=== PATIENT | female | born 1980 | race Hispanic/Latino ===

== ENCOUNTER 2019-04-18 14:07 | Emergency (ER) | payer SELFPAY ==
[2019-04-18] MEDS ORDERED: KETOROLAC TROMETHAMINE 60 MG/2 ML VIAL ONE (14:35)
[2019-04-18] MEDS ORDERED: DEXAMETHASONE SOD PHOSPHATE 10MG/ML 1ML VIAL ONE (14:35)
[2019-04-18] MEDS ORDERED: LIDOCAINE 5% TOPICAL PATCH TP ONE (14:35)
[2019-04-18 14:51] LABS: APPEARANCE,URINE Clear (CLEAR); BILIRUBIN,URINE Negative (NEGATIVE); COLOR,URINE Yellow (YELLOW); GLUCOSE, URINE (UA) Negative (NEGATIVE); KETONES,URINE Negative (NEGATIVE); LEUKOCYTE ESTERASE ,URINE Small (NEGATIVE); NITRATE,URINE Negative (NEGATIVE); OCCULT BLOOD,URINE Negative (NEGATIVE); PROTEIN,URINE Negative (NEGATIVE); UROBILINOGEN,URINE 0.2 mg/dL (0.2-1.0)
[2019-04-18 14:55] LABS: HCG,QUAL RESULT NEGATIVE (NEGATIVE)
[2019-04-18 15:03] LABS: BACTERIA,URINE Few /HPF (None Seen); MUCUS,URINE Few LPF (None Seen); RBC,URINE 0-1 /HPF (0-1)
== END 2019-04-18 15:39 | disposition home or self-care (01) ==
LOC: EDH 14:07
DX: S33.5XXA Sprain of ligaments of lumbar spine, initial encounter (principal); X58.XXXA Exposure to other specified factors, initial encounter; Y93.89 Activity, other specified; Y92.89 Other specified places as the place of occurrence of the external cause; Y99.8 Other external cause status
CPT/HCPCS: 81001; 81025; 87088; 96372 ×2; 99284; J1100; J1885

== ENCOUNTER 2019-05-23 15:26 | Emergency (ER) | payer SELFPAY | END 2019-05-23 16:09 | disposition home or self-care (01) | LOC: EDH 15:26 | DX: S39.012A Strain of muscle, fascia and tendon of lower back, initial encounter (principal); Z90.49 Acquired absence of other specified parts of digestive tract; X58.XXXA Exposure to other specified factors, initial encounter; Y93.89 Activity, other specified; Y92.89 Other specified places as the place of occurrence of the external cause; Y99.8 Other external cause status | CPT/HCPCS: 99281 ==

== ENCOUNTER 2020-11-20 22:10 | Emergency (ER) | payer OTHER ==
[2020-11-21] MEDS ORDERED: HALOPERIDOL LACTATE 5 MG/ML VIAL ONE (01:23)
[2020-11-21] MEDS ORDERED: DIPHENHYDRAMINE HCL 25 MG CAPSULE ONE (01:24)
== END 2020-11-21 03:25 | disposition home or self-care (01) ==
LOC: EDH 22:10
DX: R51.9 Headache, unspecified (principal); Z90.49 Acquired absence of other specified parts of digestive tract
CPT/HCPCS: 70450; 96372; 99284; J1630; Q0163

== ENCOUNTER 2025-07-17 08:22 | Day surgery (SDC) | payer BC ==
[2025-07-13 09:09] LABS: IMMATURE GRANULOCYTE ABSOLUTE 0.04 K/uL (0-1); NUCLEATED RED BLOOD CELLS 0.0 % (0.0-0.19); PLATELET COUNT (AUTO) 240 K/uL (130-400); RED BLOOD CELL COUNT(AUTO) 4.64 MIL/uL (4.00-5.50); RED CELL DISTRIBUTION WIDTH 13.4 % (11.0-15.5); WHITE BLOOD COUNT (AUTO) 9.8 K/uL (4.8-10.8)
[2025-07-13 09:18] LABS: CREATININE 0.7 mg/dL (0.5-1.0); GLOMERULAR FILTR. RATE CALC 109.0 mL/min (>90); GLUCOSE,RANDOM 103.0 mg/dL (70-105); SODIUM SERUM 136.0 mmol/L (136-145); UREA NITROGEN, BLOOD 9.0 mg/dL (7-18)
[2025-07-13 09:21] LABS: INR 0.96 (0.85-1.15)
[2025-07-13 09:22] VITALS: BP 119/61; PULSE 52; RESP 18; TEMP 97.7
[~2025-07-17] VITALS: Ht 154.9 cm; Wt 94.9 kg
[2025-07-17] VITALS (14 sets, daily range): BP systolic 109–135; BP diastolic 41–65; PULSE 56–81; RESP 14–17; TEMP 97.1–97.5
[2025-07-17] MEDS ORDERED: LACTATED RINGERS 1000ML 1,000 ML IV ONE (09:00)
[2025-07-17] MEDS ORDERED: MIDAZOLAM HCL 1 MG/ML 2ML VIAL ONE (11:00)
[2025-07-17] MEDS ORDERED: LIDOCAINE HCL/EPINEPHRINE 30 ML VIAL IJ ONE (11:36)
[2025-07-17] MEDS ORDERED: NEOSTIGMINE METHYLSULFATE 1MG/ML IV ONE (12:46)
[2025-07-17] MEDS ORDERED: GLYCOPYRROLATE 0.2 MG/ML 5 ML VIAL ONE (12:46)
--- NOTE | 2025-07-17 13:46 | OP ---
Operative Note: DATE OF PROCEDURE: 07/17/25 SURGEON: LAQUITA ENRIQUE MD SENIOR CONTROLS TECHNICIAN: [] ANESTHESIA: [] General ANESTHESIOLOGIST/BURNER MACHINE OPERATOR: [] PREOPERATIVE DIAGNOSIS: [] Incisional hernia POSTOPERATIVE DIAGNOSIS: [] The same SYNOPSIS: [] PROCEDURE: [] Open repair of incisional hernia with mesh ESTIMATED BLOOD LOSS: [] Minimal INDICATIONS: [] DESCRIPTION OF PROCEDURE: [] With the patient with a an incision over previous epigastric scar from a laparoscopic cholecystectomy dissection was done using cautery. Also blunt dissection. I was able to find about a 3-1/2 cm hernia with a omentum in the hernia. The hernia sac was removed. After cleaning the fascia of the hernia I placed a 4.3 cm Ventralex mesh that was anchored to the four corners.. After this was done I placed the 2-0 Prolene sutures to cover the mesh. After irrigation and adequate anesthesia I approximated subcutaneous tissue with a 3-0 0 Vicryl. And I closed the skin with 4-0 Monocryl and Dermabond. A tap block was placed with anesthesia. The patient tolerated the procedure without any complications LAQUITA ENRIQUE MD Jul 17, 2025 13:46
== END 2025-07-17 14:40 | disposition home or self-care (01) ==
LOC: DAH 08:22
PROVIDERS: ATTEND Surgery
DX: K43.2 Incisional hernia without obstruction or gangrene (principal); Z86.2 Personal history of diseases of the blood and blood-forming organs and certain disorders involving the immune mechanism; Z90.49 Acquired absence of other specified parts of digestive tract; Z98.51 Tubal ligation status; Z83.3 Family history of diabetes mellitus
CPT/HCPCS: 80048; 84703; 85025; 85610; 85730; 36415; 49593; 81025; A4223 ×2; A4600; A6260; A4663; C1781; J7120; J3010 ×3; J0665 ×2; J3490 ×2; J2250; J2704; J2405; J2710; J2795; J0690 ×2; A4930; A4215; A4213; A4222; A4221; A4216